=== PATIENT | male | born 1970 | race Caucasian/White ===

== ENCOUNTER 2016-12-31 11:09 | Emergency (ER) | payer OTHER ==
--- NOTE | 2016-12-31 15:30 | CPEKG ---
Heart Rate: 62 RR Interval: 968 P-R Interval: 176 QRSD Interval: 96 QT Interval: 408 QTC Interval: 415 P [place]: 14 QRS [place]ingham: 44 T Wave Buckingham: 15 EKG Severity - NORMAL ECG - EKG Impression: SINUS RHYTHM Electronically Signed By: Prasanth Hernández 01-Jan-2017 13:15:05
[2016-12-31] MEDS ORDERED: IOPAMIDOL (ISOVUE 370) 100 ML BTL IV ONE (15:41)
[2016-12-31] MEDS ORDERED: NS 1,000 ML IV ONE (15:42)
[2016-12-31 15:49] LABS: % IMMATURE GRANULYOCYTES 0.2 % (0.0-1.1); ABSOLUTE IMMATURE GRANULOCYTES 0.01 10^3/uL (0.00-0.10); ADD DIFF? NO; ADD MORPH? NO; ADD SCAN? NO; ATYPICAL LYMPHOCYTE FLAG 10 (0-99); FRAGMENT RBC FLAG 0 (0-99); HEMATOCRIT 45.8 % (40.0-51.0); LEFT SHIFT FLG 0 (0-99); LIPEMIA HEMOLYSIS FLAG 90 (0-99); MEAN CELL HEMOGLOBIN 31.4 pg (27.9-34.1); MEAN CELL HEMOGLOBIN CONCENTR. 34.9 g/dL (32.4-36.7); MEAN CELL VOLUME 89.8 fL (81.5-99.8); MEAN PLATELET VOLUME 9.7 fL (8.7-11.7); PLATELET CLUMPS FLAG 20 (0-99); PLATELET COUNT 217 10^3/uL (150-400); RED CELL DISTRIBUTION WIDTH 12.3 % (11.5-15.2)
[2016-12-31 15:57] LABS: ANION GAP 10 mEq/L (8-16); CALCIUM 9.8 mg/dL (8.5-10.4); CARBON DIOXIDE 26 mEq/l (22-31); CHLORIDE 102 mEq/L (97-110); CREATININE 1.3 mg/dL (0.7-1.3); GLOMERULAR FILTRATION RATE 60; GLUCOSE 81 mg/dL (70-100); POTASSIUM 4.4 mEq/L (3.5-5.2); SODIUM 138 mEq/L (134-144)
[2016-12-31] MEDS ORDERED: ACYCLOVIR 400 MG TAB PO ONE (16:02)
--- NOTE | 2016-12-31 16:02 | EDPHY ---
H & P Stated Complaint: back pain to abd worse at night Time Seen by Provider: 12/31/16 14:45 HPI/ROS: Chief complaint: Right-sided back and chest pain History of present illness: This is a 46-year-old male who presents to the emergency department for right-sided back and chest pain. Patient reports the onset of symptoms over the last day. He reports symptoms are worsening. He states he has developed an associated rash in this region. Symptoms are worsened with deep breathing. He denies other associated signs or symptoms including no fevers or chills, no cough, no pain or swelling in the legs. Patient suffered from a pulmonary embolism after he fractured his leg last fall. He was on Coumadin but discontinued it earlier this spring and is not currently on anticoagulant medications. He states this feels very similar to the last time he had a pulmonary embolism. Review of systems: A 10 point review of systems was obtained and other than described above was negative - Personal History Current Tetanus/Diphtheria Vaccine: Yes Current Tetanus Diphtheria and Acellular Pertussis (TDAP): Yes Tetanus Vaccine Date: within last 10 years - Medical/Surgical History Hx Asthma: No Hx Chronic Respiratory Disease: No Hx Diabetes: No Hx Cardiac Disease: No Hx Renal Disease: No Hx Cirrhosis: No Hx Alcoholism: No Hx HIV/AIDS: No Hx Splenectomy or Spleen Trauma: No Other PMH: wisdom teeth extracted, right arm fx with plate, hypothyroidsm, hyperlipidemia, orif R tibia - Social History Smoking Status: Never smoked - Physical Exam Exam: General Appearance: Alert, nontoxic. Eyes: Pupils equal and round no pallor or injection. ENT, Mouth: Mucous membranes moist. Respiratory: There are no retractions, lungs are clear to auscultation. Cardiovascular: Regular rate and rhythm. Gastrointestinal: Abdomen is soft and nontender, no masses, bowel sounds normal. Neurological: Alert and oriented x4. Strength and sensation intact and symmetrical. Skin: Patient is an erythematous rash with vesicles to the right side of his back and abdomen in a dermatomal pattern consistent with shingles. Musculoskeletal: Neck is supple nontender. Extremities are symmetrical, full range of motion. Psychiatric: Patient is oriented X 3, there is no agitation. Constitutional: Initial Vital Signs Temperature (C) 36.8 C 12/31/16 11:23 Heart Rate 74 12/31/16 11:23 Respiratory Rate 16 12/31/16 11:23 Blood Pressure 107/79 12/31/16 11:23 O2 Sat (%) 96 12/31/16 11:23 O2 Delivery Mode Room Air Allergies/Adverse Reactions: oxycodone Allergy (Verified 07/06/16 09:23) Home Medications: Medication Instructions Recorded Ezetimibe [Zetia 10 MG (*)] 10 mg PO DAILY 05/06/16 Levothyroxine [Synthroid 75 mcg 75 mcg PO DAILY06 05/06/16 (*)] QUEtiapine FUMARATE [Seroquel 25 12.5 - 25 mg PO HS PRN 05/06/16 mg (*)] Simvastatin [Zocor] 40 mg PO DAILY 05/06/16 Acetaminophen [Tylenol 325mg (*)] 650 mg PO Q6 PRN 06/17/16 Warfarin Sodium [Coumadin 5MG (*)] 7.5 mg PO DAILY AT 4PM #50 tab 06/19/16 Acyclovir 800 mg PO 5XD #35 tab 12/31/16 Medical Decision Making - Diagnostics Imaging: Discussed imaging studies w/ banquet server on call Radiologist ED Course/Re-evaluation: Patient is discussed with my secondary supervising physician Dr. Aj Ornelas. Patient presents to the emergency department with right-sided chest pain. He is nontoxic. Vital signs are stable. He has a rash consistent with shingles. However he is very concerned that he has redeveloped a pulmonary embolism as he had one previously and recently discontinued anticoagulation medication. He believes the chest pain that he is experiencing is different than the pain he has at the site of the rash. He would like to be worked up for new pulmonary embolism. Workup is obtained and negative. I do believe his symptoms are secondary to shingles. He will be started on acyclovir. He is discharged home. Home care is discussed. Return precautions are given. Patient voiced understanding and agreement with plan. Differential Diagnosis: Included but not limited to shingles, pulmonary embolism, pneumonia, pneumothorax - Data Points Laboratory Results: Laboratory Results 12/31/16 15:28 12/31/16 15:28 12/31/16 12/31/16 12/31/16 15:29 15:28 15:28 WBC 4.42 10^3/uL 10^3/uL (3.80-9.50) RBC 5.10 10^6/uL 10^6/uL (4.40-6.38) Hgb 16.0 g/dL g/dL (13.7-17.5) POC Hgb 16.3 gm/dL gm/dL (13.7-17.5) Hct 45.8 % % (40.0-51.0) POC Hct 48 % % (40-51) MCV 89.8 fL fL (81.5-99.8) MCH 31.4 pg pg (27.9-34.1) MCHC 34.9 g/dL g/dL (32.4-36.7) RDW 12.3 % % (11.5-15.2) Plt Count 217 10^3/uL 10^3/uL (150-400) MPV 9.7 fL fL (8.7-11.7) Neut % (Auto) 56.6 % % (39.3-74.2) Lymph % (Auto) 29.2 % % (15.0-45.0) Randolph % (Auto) 9.5 % % (4.5-13.0) Eos % (Auto) 3.6 % % (0.6-7.6) Baso % (Auto) 0.9 % % (0.3-1.7) Nucleat RBC Rel Count 0.0 % % (0.0-0.2) Absolute Neuts (auto) 2.50 10^3/uL 10^3/uL (1.70-6.50) Absolute Lymphs (auto) 1.29 10^3/uL 10^3/uL (1.00-3.00) Absolute Monos (auto) 0.42 10^3/uL 10^3/uL (0.30-0.80) Absolute Eos (auto) 0.16 10^3/uL 10^3/uL (0.03-0.40) Absolute Basos (auto) 0.04 10^3/uL 10^3/uL (0.02-0.10) Absolute Nucleated RBC 0.00 10^3/uL 10^3/uL (0-0.01) Immature Gran % 0.2 % % (0.0-1.1) Immature Gran # 0.01 10^3/uL 10^3/uL (0.00-0.10) POC Sodium 142 mEq/L mEq/L (134-144) Sodium 138 mEq/L mEq/L (134-144) POC Potassium 4.0 mEq/L mEq/L (3.3-5.0) Potassium 4.4 mEq/L mEq/L (3.5-5.2) POC Chloride 100 mEq/L mEq/L (97-110) Chloride 102 mEq/L mEq/L (97-110) Carbon Dioxide 26 mEq/l mEq/l (22-31) Anion Gap 10 mEq/L mEq/L (8-16) POC BUN 20 mg/dL mg/dL (7-23) BUN 19 mg/dL mg/dL (7-23) Creatinine 1.3 mg/dL mg/dL (0.7-1.3) POC Creatinine 1.4 mg/dL H mg/dL (0.7-1.3) Estimated GFR 60 Glucose 81 mg/dL mg/dL (70-100) POC Glucose 84 mg/dL mg/dL (70-100) Calcium 9.8 mg/dL mg/dL (8.5-10.4) Troponin I < 0.012 ng/mL ng/mL (0-0.034) Medications Given: Discontinued Medications Sodium Chloride (Ns) 1,000 mls @ 0 mls/hr IV ONCE ONE PRN Reason: Wide Open Stop: 12/31/16 15:43 Last Admin: 12/31/16 15:42 Dose: 1,000 mls Point of Care Test Results: 12/31/16 15:29 POC Sodium 142 POC Potassium 4.0 POC Chloride 100 POC BUN 20 POC Creatinine 1.4 H POC Glucose 84 Departure - Departure Disposition: Home, Routine, Self-Care Clinical Impression: Shingles Condition: Good Instructions: Shingles (ED) Referrals: Maggie Coulter MD [Primary Care Provider] - As per Instructions Prescriptions: Acyclovir 800 mg PO 5XD #35 tab
[2016-12-31 16:07] LABS: TROPONIN I < 0.012 ng/mL (0-0.034)
[2016-12-31 16:53] VITALS: BP 132/87; PULSE 83; RESP 18; TEMP 98.4; O2SAT 97
== END 2016-12-31 16:52 | disposition home or self-care (01) ==
DX: B02.9 Zoster without complications (principal); Z79.01 Long term (current) use of anticoagulants
CPT/HCPCS: 82947-QW; Q9967

== ENCOUNTER 2018-11-23 10:26 | Emergency (ER) | payer OTHER ==
--- NOTE | 2018-11-23 10:46 | EDPHY ---
H & P Stated Complaint: L arm pnt specific pain since yesterday, Hx PE. Denies SOB/CP. Time Seen by Provider: 11/23/18 10:34 HPI/ROS: CHIEF COMPLAINT: Left antecubital cubital fossa and right calf pain, history of factor 5 Leiden HISTORY OF PRESENT ILLNESS: 48-year-old male history of factor 5 Leiden, prior history of DVT and PE, not currently anticoagulated, complaining of atraumatic right calf and left arm pain, specifically in antecubital fossa, after a mountain bike ride yesterday. No fall or trauma. Concerned because a feels similar to prior DVT. No dyspnea. No chest pain. No discoloration to either extremity. No paresthesia to either extremity. PRIMARY CARE PROVIDER: Dr. Maggie Coulter REVIEW OF SYSTEMS: 10 systems reviewed and negative with the exception of the elements mentioned in the history of present illness PAST MEDICAL & SURGICAL HISTORY: Factor 5 Leiden history. DVT PE history. No chronic anticoagulation. SOCIAL HISTORY: Nonsmoker. No IV drug use. PHYSICAL EXAM (Prior to examination, patient consented to physical exam, hands were washed and my usual and customary physical exam procedures followed) 1) GENERAL: Well-developed, well-nourished, alert and oriented. Appears to be in no acute distress. 2) HEAD: Normocephalic, atraumatic 3) HEENT: Pupils equal, round, reactive to light bilaterally. Sclera anicteric. 4) NECK: Full range of motion, no meningeal signs. 5) LUNGS: Clear auscultation bilaterally, no wheezes, no rhonchi, no retractions. 6) HEART: Regular rate and rhythm, no murmur, no heave, no gallop. 7) ABDOMEN: No guarding, no rebound, no focal tenderness, negative McBurney's, negative Perez's, negative Rovsing's, negative peritoneal sign, 8) MUSCULOSKELETAL: Left upper extremity: Tender to palpation left antecubital fossa with no skin changes, soft compartments throughout, no crepitus, neurovascularly intact distally with normal coloration and temperature distally. Right upper extremity: No tenderness. no skin changes, soft compartments throughout, no crepitus, neurovascularly intact distally with normal coloration and temperature distally. Right lower extremity: Palpable cord right calf with associated tenderness. No skin changes. Soft compartments. No crepitus. No overlying skin changes. DP PT pulses present and brisk distally with normal color and temperature distally. Left lower extremity:no skin changes, soft compartments throughout, no crepitus , neurovascularly intact distally with normal coloration and temperature distally. DP PT pulses present and brisk 9) BACK: N no obvious trauma, no visual or palpable abnormality. 10) SKIN: No rash, no petechiae. 11) Psychiatric: Patient is oriented X 3, there is no agitation. DIFFERENTIAL DIAGNOSIS: In no particular order including but not limited to DVT, compartment syndrome, superficial venous thrombosis, cellulitis, PE - Personal History Current Tetanus/Diphtheria Vaccine: Yes Tetanus Vaccine Date: within last 10 years - Medical/Surgical History Hx Asthma: No Hx Chronic Respiratory Disease: No Hx Diabetes: No Hx Cardiac Disease: No Hx Renal Disease: No Hx Cirrhosis: No Hx Alcoholism: No Hx HIV/AIDS: No Hx Splenectomy or Spleen Trauma: No Other PMH: wisdom teeth extracted, right arm fx with plate, hypothyroidsm, hyperlipidemia, orif R tibia, multiple PEs - Social History Smoking Status: Never smoked Constitutional: Initial Vital Signs Temperature (C) 36.5 C 11/23/18 10:31 Heart Rate 63 11/23/18 10:31 Respiratory Rate 18 11/23/18 10:31 Blood Pressure 144/94 H 11/23/18 10:31 O2 Sat (%) 98 11/23/18 10:31 O2 Delivery Mode Room Air Allergies/Adverse Reactions: oxycodone Allergy (Verified 11/23/18 10:30) Home Medications: Medication Instructions Recorded Ezetimibe [Zetia 10 MG (*)] 10 mg PO DAILY 05/06/16 Levothyroxine [Synthroid 75 mcg 75 mcg PO DAILY06 05/06/16 (*)] QUEtiapine FUMARATE [Seroquel 25 12.5 - 25 mg PO HS PRN 05/06/16 mg (*)] Simvastatin [Zocor] 40 mg PO DAILY 05/06/16 Acetaminophen [Tylenol 325mg (*)] 650 mg PO Q6 PRN 06/17/16 Warfarin Sodium [Coumadin 5MG (*)] 7.5 mg PO DAILY AT 4PM #50 tab 06/19/16 Acyclovir 800 mg PO 5XD #35 tab 12/31/16 Medical Decision Making - Diagnostics Imaging Results: Imaging Impressions Extremity Venous Study 11/23/18 10:41 Impression: No deep venous thrombosis right leg. Findings and recommendations discussed with Emergency Department physician, Rachelle JC at 11:52 hour, 11/23/2018. Final report concurs with initial preliminary interpretation. Extremity Venous Study 11/23/18 10:41 Impression: 1. Positive superficial thrombophlebitis involving the left cephalic vein. 2. No deep venous thrombosis left arm. Findings and recommendations discussed with Emergency Department physician, Rachelle Sinha at 11:52 hour, 11/23/2018. Final report concurs with initial preliminary interpretation. Images reviewed myself ED Course/Re-evaluation: 10:46 a.m.: I reviewed the patient's old medical records. Recommended ultrasound of his left upper extremity and right lower extremity given his history of factor 5 Leiden and recurrent DVT. No pulmonary complaints at this time. 11:57 a.m.: Discussed with the patient his imaging results showing no evidence of DVT in either the upper lower extremity. Superficial thrombophlebitis left upper extremity noted. I re-examined the patient. He remains neurovascular intact. Recommend warm compresses. He Will be discharged. Close follow-up and red flag signs and symptoms discussed with patient. Think the patient is safe for discharge. He feels comfortable being discharged. Care of patient under supervision of secondary supervising physician Dr Penaloza with whom I discussed case. Departure - Departure Disposition: Home, Routine, Self-Care Clinical Impression: Thrombophlebitis of left arm Condition: Good Instructions: Superficial Thrombophlebitis (ED) Additional Instructions: Return to the ER immediately if you experience discoloration, have worsening pain, numbness, tingling, or any other symptoms that concern you. Try to keep your affected extremity elevated above the level of your chest, and keep cold packs on the affected area, for the next 48 hours. Referrals: Maggie Coulter MD [Primary Care Provider] - 2-3 days, call for appt.
[2018-11-23 12:16] VITALS: BP 128/89
== END 2018-11-23 12:16 | disposition home or self-care (01) ==
DX: I80.8 Phlebitis and thrombophlebitis of other sites (principal); M79.661 Pain in right lower leg; D68.2 Hereditary deficiency of other clotting factors; Z86.718 Personal history of other venous thrombosis and embolism; Z86.711 Personal history of pulmonary embolism

== ENCOUNTER 2018-11-27 16:23 | Observation (INO) | payer OTHER ==
--- NOTE | 2018-11-27 17:07 | EDPHY ---
H & P Stated Complaint: LUE superficial thrombosis, SOB Time Seen by Provider: 11/27/18 17:02 HPI/ROS: HPI: This is a 48-year-old male who presents with Chief Complaint: LUE superficial thrombosis, SOB Location: Left upper extremity Quality: Worsening swelling and palpable cord Duration: 24-48 hours Signs and Symptoms: No bleeding, no radiation, no numbness, no weakness, no tingling, no incontinence, no decreased range of motion, no swelling, no pain, no fever Timing: Rapidly worsening Severity: Moderate Context: Patient has a history of factor 5 Leiden deficiency, pulmonary embolism and DVT last and May 2016 after right tibia fracture and ORIF procedure presents for the 2nd time to the emergency room in 4 days with complaints of shortness of breath at rest over the last 24-48 hours. Patient was seen in this emergency room on 11/23/2018 after he went mountain biking over the weekend and noticed left upper extremity swelling and palpable cord. An ultrasound was performed that showed left cephalic vein superficial thrombosis. A right lower leg ultrasound was performed and was negative for DVT. Patient was advised supportive care. He reports that the area of discomfort in his left upper extremity is still present and now he has a more medial area with a palpable cord. Followed by Hematology, Dr. De La Rosa. No Longer taking anticoagulation. Patient denies any fever, cough, wheezing, chest pain. No recent long distance travel. Nonsmoker. Modifying Factors: Warm compresses without relief Comment: ROS: A comprehensive 10 system review of systems is otherwise negative aside from elements mentioned in the history of present illness. MEDICAL/SURGICAL/SOCIAL HISTORY: Medical history: hypothyroidism, hyperlipidemia, multiple PEs, factor 5 Leiden Surgical history: ORIF right tibia, wisdom teeth extraction, right arm fracture with or ORIF Social history: Employed. Nonsmoker. CONSTITUTIONAL: Polite and cooperative middle-aged white male, awake and alert , no obvious distress HEENT: Atraumatic and normocephalic, PERRL, EOMI. Wears glasses. Nares patent ; no rhinorrhea; no nasal mucosal edema. Tympanic membranes clear. Oropharynx clear, no exudate and moist pink mucosa. Airway patent. No lymphadenopathy. No meningismus. Cardiovascular: Normal S1/S2, regular rate, regular rhythm, without murmur rub or gallop. PULMONARY/CHEST: Symmetrical and nontender. Clear to auscultation bilaterally. Good air movement. No accessory muscle usage. ABDOMEN: Soft, nondistended, nontender, no rebound, no guarding, no peritoneal signs, no masses or organomegaly. No CVAT. EXTREMITIES: 2/2 radial pulses, boilers and pressure vessels inspector strength 5/5, left upper extremity shows palpable cord along the cephalic lateral portion as well as the medial vein near the antecubital fossa no skin erythema, warmth, discharge. Tenderness with palpation of the 2 palpable cords. no clubbing, no cyanosis or edema. Negative Homans sign. NEUROLOGICAL: no focal neuro deficits. GCS 15. SKIN: Warm and dry, no erythema. no rash. Good capillary refill. Source: Patient Exam Limitations: No limitations - Personal History Current Tetanus/Diphtheria Vaccine: Yes Current Tetanus Diphtheria and Acellular Pertussis (TDAP): Yes Tetanus Vaccine Date: within last 10 years - Medical/Surgical History Hx Asthma: No Hx Chronic Respiratory Disease: No Hx Diabetes: No Hx Cardiac Disease: No Hx Renal Disease: No Hx Cirrhosis: No Hx Alcoholism: No Hx HIV/AIDS: No Hx Splenectomy or Spleen Trauma: No Other PMH: wisdom teeth extracted, right arm fx with plate, hypothyroidsm, hyperlipidemia, orif R tibia, multiple PEs, factor 5 Leiden - Social History Smoking Status: Never smoked Constitutional: Initial Vital Signs Temperature (C) 37.1 C 11/27/18 16:32 Heart Rate 75 11/27/18 16:32 Respiratory Rate 16 11/27/18 16:32 Blood Pressure 120/87 H 11/27/18 16:32 O2 Sat (%) 97 11/27/18 16:32 O2 Delivery Mode Room Air Allergies/Adverse Reactions: oxycodone Allergy (Verified 11/27/18 16:32) Home Medications: Medication Instructions Recorded Levothyroxine [Synthroid 75 mcg 75 mcg PO DAILY06 05/06/16 (*)] QUEtiapine FUMARATE [Seroquel 25 12.5 - 25 mg PO HS PRN 05/06/16 mg (*)] Acetaminophen [Tylenol 325mg (*)] 650 mg PO Q6 PRN 06/17/16 Crestor 11/27/18 Medical Decision Making - Diagnostics Imaging Results: Imaging Impressions Chest/Thorax CTA 11/27/18 17:07 Impression: Very small volume left lower lobe subsegmental pulmonary artery thromboemboli. There is no evidence of pulmonary infarction or pleural effusion. Findings were discussed with Amanda Fernandez PA-C at 18:21, on 11/27/2018. ED Course/Re-evaluation: Vital signs reviewed and stable upon arrival. No hypoxia, tachypnea, respiratory distress. IV access, laboratory studies and CTA chest ordered as high risk for pulmonary embolism with superficial thrombosis diagnosed several days ago factor 5 Leiden deficiency. 1800: Laboratory studies reviewed. No signs of leukocytosis/anemia/platelet dysfunction/JOAQUÍN/electrolyte imbalance/coagulopathy. 1825: Called By Dr. Lynch who advised CTA chest shows small left lower lobe subsegmental PE in the isolated branch with no heart strain, no pulmonary infarction and no effusion. Given Lovenox 1 mg/kg ED decision to consult for admission for factor 5 Leiden deficiency, left cephalic vein superficial thrombosis that is worsening and new pulmonary embolism. Spoke with Dr. Polanco who kindly agrees to admit patient and provide further care. This patient was seen under the supervision of my secondary supervising physician. I evaluated and cared for this patient with attending. Differential Diagnosis: Shortness of breath including but not limited to pulmonary infectious process, COPD, asthma, pulmonary embolus and congestive heart failure. - Data Points Laboratory Results: Laboratory Results 11/27/18 17:17 11/27/18 17:17 11/27/18 11/27/18 11/27/18 17:17 17:17 17:17 WBC 5.87 10^3/uL 10^3/uL (3.80-9.50) RBC 5.34 10^6/uL 10^6/uL (4.40-6.38) Hgb 16.3 g/dL g/dL (13.7-17.5) Hct 48.9 % % (40.0-51.0) MCV 91.6 fL fL (81.5-99.8) MCH 30.5 pg pg (27.9-34.1) MCHC 33.3 g/dL g/dL (32.4-36.7) RDW 12.7 % % (11.5-15.2) Plt Count 228 10^3/uL 10^3/uL (150-400) MPV 9.1 fL fL (8.7-11.7) Neut % (Auto) 57.3 % % (39.3-74.2) Lymph % (Auto) 33.6 % % (15.0-45.0) [facility] % (Auto) 6.3 % % (4.5-13.0) Eos % (Auto) 1.9 % % (0.6-7.6) Baso % (Auto) 0.7 % % (0.3-1.7) Nucleat RBC Rel Count 0.0 % % (0.0-0.2) Absolute Neuts (auto) 3.37 10^3/uL 10^3/uL (1.70-6.50) Absolute Lymphs (auto) 1.97 10^3/uL 10^3/uL (1.00-3.00) Absolute Monos (auto) 0.37 10^3/uL 10^3/uL (0.30-0.80) Absolute Eos (auto) 0.11 10^3/uL 10^3/uL (0.03-0.40) Absolute Basos (auto) 0.04 10^3/uL 10^3/uL (0.02-0.10) Absolute Nucleated RBC 0.00 10^3/uL 10^3/uL (0-0.01) Immature Gran % 0.2 % % (0.0-1.1) Immature Gran # 0.01 10^3/uL 10^3/uL (0.00-0.10) PT 12.1 SEC SEC (12.0-15.0) INR 0.93 (0.83-1.16) APTT 31.0 SEC SEC (23.0-38.0) Sodium 137 mEq/L mEq/L (135-145) Potassium 4.2 mEq/L mEq/L (3.5-5.2) Chloride 100 mEq/L mEq/L (97-110) Carbon Dioxide 28 mEq/l mEq/l (22-31) Anion Gap 9 mEq/L mEq/L (6-14) BUN 18 mg/dL mg/dL (7-23) Creatinine 1.2 mg/dL mg/dL (0.7-1.3) Estimated GFR > 60 Glucose 88 mg/dL mg/dL (70-100) Calcium 9.9 mg/dL mg/dL (8.5-10.4) Departure - Departure Disposition: [facility] Clinical Impression: Left cephalic vein thrombosis, Factor V Leiden Pulmonary embolism Qualifiers: Pulmonary embolism type: other Chronicity: acute Acute cor pulmonale presence: without acute cor pulmonale Qualified Code(s): I26.99 - Other pulmonary embolism without acute cor pulmonale Condition: Fair
[2018-11-27 17:28] LABS: PLATELET COUNT 228 10^3/uL (150-400)
[2018-11-27] MEDS ORDERED: IOPAMIDOL (ISOVUE 370) 100 ML BTL IV ONE (17:33)
[2018-11-27 17:59] LABS: INR 0.93 (0.83-1.16); PROTIME(PATIENT) 12.1 SEC (12.0-15.0)
[2018-11-27] MEDS ORDERED: ENOXAPARIN 100 MG/ML SYR SC ONE ×2 (18:26→19:00)
[2018-11-27] MEDS ORDERED: ONDANSETRON 4 MG/2 ML VIAL IVP PRN (19:17)
[2018-11-27] MEDS ORDERED: ONDANSETRON DISINTEGRATING 4 MG TAB PO PRN (19:17)
[2018-11-27] MEDS ORDERED: ACETAMINOPHEN 325 MG TAB PO PRN (19:17)
[2018-11-27] MEDS ORDERED: QUEtiapine FUMARATE 25 MG TAB PO PRN (19:21)
[2018-11-27] MEDS ORDERED: OLOPATADINE EACHEYE PRN (19:21)
--- NOTE | 2018-11-27 19:28 | PDGENHP ---
<Liliam Johnston - Last Filed: 11/27/18 19:49> History and Physical - Chief Complaint SOB - History of Present Illness 48 y/o male w/hx Factor V Leiden, hypothyroidism, PE/DVT, and HLD presents w/4 days worth of SOB @ rest. He presented to the ED on 11/23 w/ c/o LUE swelling and tenderness after mountain biking over the weekend, no trauma. US performed demonstrated left cephalic vein superficial thrombosis and RLE US negative for DVT (2016 R tib fx w/ORIF repair). He was d/c'ed from ED w/supportive care instructions. He presents today w/ worsening LUE pain and tenderness and SOB at rest. Chest CTA demonstrate small volume to left lower lobe subsegmental PE. No AC for the last 2 years. Denies CP, palpitations, nausea, vomiting. No recent surgeries or long distance traveling. He is being admitted for treatment and monitoring. History Information - Allergies/Home Medication List Allergies/Adverse Reactions: oxycodone Allergy (Verified 11/27/18 16:32) Home Medications: Levothyroxine [Synthroid 75 mcg (*)] 75 mcg PO DAILY06 05/06/16 [Last Taken 04/09] QUEtiapine FUMARATE [Seroquel 25 mg (*)] 12.5 - 25 mg PO HS PRN 05/06/16 [Last Taken 11/26/18] Olopatadine HCl [Pataday] 1 % EACHEYE DAILY PRN 11/27/18 [Last Taken Unknown] Rosuvastatin Calcium [Crestor 10mg (RX)] 10 mg PO DAILY 11/27/18 [Last Taken 04/09] I have personally reviewed and updated: family history, medical history, social history, surgical history Past Medical History: Factor V Leiden - not AC - Past Medical History DVT (RLE 2016), hyperlipidemia, pulmonary embolism (2016) Additional medical history: Hyperlipidemia, hypothyroidism - Surgical History Additional surgical history: Right arm fracture repair, left thumb repair, wisdom teeth extraction, right tibial fracture repair - Family History Positive for: CAD - Social History Smoking Status: Never smoked Alcohol Use: None Drug Use: None Additional social history: 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 Lives in [facility] Review of Systems Review of Systems: ROS: 10pt was reviewed & negative except for what was stated in HPI & below Physical Exam Physical Exam: Lab data and imaging were reviewed. White blood count: 5.87 Hemoglobin hematocrit: 16.3 and 48.9 Platelet count: 2 2 8 Sodium: 137 Potassium: 4.2 Chloride: 100 Carbon dioxide: 28 BUN/Cr: 18/1.2 INR: 0.93 Chest CTA: See HPI EKG: Pending Temp Pulse Resp BP Pulse Ox 37.1 C 75 16 120/87 H 97 11/27/18 16:32 11/27/18 16:32 11/27/18 16:32 11/27/18 16:32 11/27/18 16:32 Constitutional: no apparent distress, appears nourished, not in pain Eyes: PERRL, anicteric sclera, EOMI Ears, Nose, Mouth, Throat: moist mucous membranes, hearing normal, ears appear normal, no oral mucosal ulcers Cardiovascular: regular rate and rhythym, no murmur, rub, or gallop, No edema Peripheral Pulses: 2+: dorsalis-pedis (R), dorsalis-pedis (L) Respiratory: no respiratory distress, no rales or rhonchi, clear to auscultation Gastrointestinal: normoactive bowel sounds, soft, non-tender abdomen, no palpable masses Genitourinary: no bladder fullness, no bladder tenderness Skin: warm, normal color, no rashes or abrasions, no fluctuance, no induration, other (Left upper extremity: Edematous palpable 2 cords with tenderness along the cephalic lateral portion as well as the medial vein near the AC fossa left radial pulse 2 +, sensation intact and radiology physician assistant strength intact), No mottled Musculoskeletal: full muscle strength, no muscle tenderness, normal joint ROM, no joint effusions Neurologic: AAOx3, sensation intact bilaterally, CN II-XII Intact Psychiatric: interacting appropriately, not anxious, not encephalopathic, thought process linear Lymph, Heme, Immunologic: no cervical LAD, no supraclavicular LAD Lab Data & Imaging Review 11/27/18 17:17 11/27/18 17:17 WBC 5.87 10^3/uL (3.80-9.50) 11/27/18 17:17 RBC 5.34 10^6/uL (4.40-6.38) 11/27/18 17:17 Hgb 16.3 g/dL (13.7-17.5) 11/27/18 17:17 Hct 48.9 % (40.0-51.0) 11/27/18 17:17 MCV 91.6 fL (81.5-99.8) 11/27/18 17:17 MCH 30.5 pg (27.9-34.1) 11/27/18 17:17 MCHC 33.3 g/dL (32.4-36.7) 11/27/18 17:17 RDW 12.7 % (11.5-15.2) 11/27/18 17:17 Plt Count 228 10^3/uL (150-400) 11/27/18 17:17 MPV 9.1 fL (8.7-11.7) 11/27/18 17:17 Neut % (Auto) 57.3 % (39.3-74.2) 11/27/18 17:17 Lymph % (Auto) 33.6 % (15.0-45.0) 11/27/18 17:17 Rankin % (Auto) 6.3 % (4.5-13.0) 11/27/18 17:17 Eos % (Auto) 1.9 % (0.6-7.6) 11/27/18 17:17 Baso % (Auto) 0.7 % (0.3-1.7) 11/27/18 17:17 Nucleat RBC Rel Count 0.0 % (0.0-0.2) 11/27/18 17:17 Absolute Neuts (auto) 3.37 10^3/uL (1.70-6.50) 11/27/18 17:17 Absolute Lymphs (auto) 1.97 10^3/uL (1.00-3.00) 11/27/18 17:17 Absolute Monos (auto) 0.37 10^3/uL (0.30-0.80) 11/27/18 17:17 Absolute Eos (auto) 0.11 10^3/uL (0.03-0.40) 11/27/18 17:17 Absolute Basos (auto) 0.04 10^3/uL (0.02-0.10) 11/27/18 17:17 Absolute Nucleated RBC 0.00 10^3/uL (0-0.01) 11/27/18 17:17 Immature Gran % 0.2 % (0.0-1.1) 11/27/18 17:17 Immature Gran # 0.01 10^3/uL (0.00-0.10) 11/27/18 17:17 PT 12.1 SEC (12.0-15.0) 11/27/18 17:17 INR 0.93 (0.83-1.16) 11/27/18 17:17 APTT 31.0 SEC (23.0-38.0) 11/27/18 17:17 Sodium 137 mEq/L (135-145) 11/27/18 17:17 Potassium 4.2 mEq/L (3.5-5.2) 11/27/18 17:17 Chloride 100 mEq/L (97-110) 11/27/18 17:17 Carbon Dioxide 28 mEq/l (22-31) 11/27/18 17:17 Anion Gap 9 mEq/L (6-14) 11/27/18 17:17 BUN 18 mg/dL (7-23) 11/27/18 17:17 Creatinine 1.2 mg/dL (0.7-1.3) 11/27/18 17:17 Estimated GFR > 60 11/27/18 17:17 Glucose 88 mg/dL (70-100) 11/27/18 17:17 Calcium 9.9 mg/dL (8.5-10.4) 11/27/18 17:17 Total Bilirubin 0.4 mg/dL (0.1-1.4) 11/27/18 17:17 Conjugated Bilirubin 0.3 mg/dL (0.0-0.5) 11/27/18 17:17 Unconjugated Bilirubin 0.1 mg/dL (0.0-1.1) 11/27/18 17:17 AST 28 IU/L (17-59) 11/27/18 17:17 ALT 44 IU/L (21-72) 11/27/18 17:17 Alkaline Phosphatase 66 IU/L (38-126) 11/27/18 17:17 Total Protein 7.7 g/dL (6.3-8.2) 11/27/18 17:17 Albumin 4.7 g/dL (3.5-5.0) 11/27/18 17:17 Assessment & Plan Plan: 48-year-old male with history of factor 5 Leiden, hypothyroidism, history of pulmonary embolism and DVT, and hyperlipidemia presents with shortness of breath at rest and worsening left upper extremity pain which imaging on prior ER visit show left cephalic vein superficial thrombosis. His vital signs are the following: Blood pressure 120/87, heart rate 75, respirations 16, temperature 37.1 degrees, and oxygen saturation on room air is 97%. # pulmonary embolism -No evidence of heart strain on chest CTA; EKG pending -Received Lovenox subq 85 mg; will begin PO AC Xarelto BID in AM. Will need to take for 21 days followed by 20 mg QD. 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 the possibility of needing life-long AC #Hypothyroidism: cont L4T #HLD: Cont statin. Diet: Regular VTE PPX: Xarelto, SCDs Code: Full Dispo: Admit to observation <Barbara Polanco - Last Filed: 11/27/18 22:09> History and Physical - History of Present Illness Review of Systems Review of Systems: Physical Exam Physical Exam: Temp Pulse Resp BP Pulse Ox 36.8 C 80 16 143/93 H 94 11/27/18 19:55 11/27/18 19:55 11/27/18 19:55 11/27/18 19:55 11/27/18 19:55 Lab Data & Imaging Review 11/27/18 17:17 11/27/18 17:17 WBC 5.87 10^3/uL (3.80-9.50) 11/27/18 17:17 RBC 5.34 10^6/uL (4.40-6.38) 11/27/18 17:17 Hgb 16.3 g/dL (13.7-17.5) 11/27/18 17:17 Hct 48.9 % (40.0-51.0) 11/27/18 17:17 MCV 91.6 fL (81.5-99.8) 11/27/18 17:17 MCH 30.5 pg (27.9-34.1) 11/27/18 17:17 MCHC 33.3 g/dL (32.4-36.7) 11/27/18 17:17 RDW 12.7 % (11.5-15.2) 11/27/18 17:17 Plt Count 228 10^3/uL (150-400) 11/27/18 17:17 MPV 9.1 fL (8.7-11.7) 11/27/18 17:17 Neut % (Auto) 57.3 % (39.3-74.2) 11/27/18 17:17 Lymph % (Auto) 33.6 % (15.0-45.0) 11/27/18 17:17 Rankin % (Auto) 6.3 % (4.5-13.0) 11/27/18 17:17 Eos % (Auto) 1.9 % (0.6-7.6) 11/27/18 17:17 Baso % (Auto) 0.7 % (0.3-1.7) 11/27/18 17:17 Nucleat RBC Rel Count 0.0 % (0.0-0.2) 11/27/18 17:17 Absolute Neuts (auto) 3.37 10^3/uL (1.70-6.50) 11/27/18 17:17 Absolute Lymphs (auto) 1.97 10^3/uL (1.00-3.00) 11/27/18 17:17 Absolute Monos (auto) 0.37 10^3/uL (0.30-0.80) 11/27/18 17:17 Absolute Eos (auto) 0.11 10^3/uL (0.03-0.40) 11/27/18 17:17 Absolute Basos (auto) 0.04 10^3/uL (0.02-0.10) 11/27/18 17:17 Absolute Nucleated RBC 0.00 10^3/uL (0-0.01) 11/27/18 17:17 Immature Gran % 0.2 % (0.0-1.1) 11/27/18 17:17 Immature Gran # 0.01 10^3/uL (0.00-0.10) 11/27/18 17:17 PT 12.1 SEC (12.0-15.0) 11/27/18 17:17 INR 0.93 (0.83-1.16) 11/27/18 17:17 APTT 31.0 SEC (23.0-38.0) 11/27/18 17:17 Sodium 137 mEq/L (135-145) 11/27/18 17:17 Potassium 4.2 mEq/L (3.5-5.2) 11/27/18 17:17 Chloride 100 mEq/L (97-110) 11/27/18 17:17 Carbon Dioxide 28 mEq/l (22-31) 11/27/18 17:17 Anion Gap 9 mEq/L (6-14) 11/27/18 17:17 BUN 18 mg/dL (7-23) 11/27/18 17:17 Creatinine 1.2 mg/dL (0.7-1.3) 11/27/18 17:17 Estimated GFR > 60 11/27/18 17:17 Glucose 88 mg/dL (70-100) 11/27/18 17:17 Calcium 9.9 mg/dL (8.5-10.4) 11/27/18 17:17 Total Bilirubin 0.4 mg/dL (0.1-1.4) 11/27/18 17:17 Conjugated Bilirubin 0.3 mg/dL (0.0-0.5) 11/27/18 17:17 Unconjugated Bilirubin 0.1 mg/dL (0.0-1.1) 11/27/18 17:17 AST 28 IU/L (17-59) 11/27/18 17:17 ALT 44 IU/L (21-72) 11/27/18 17:17 Alkaline Phosphatase 66 IU/L (38-126) 11/27/18 17:17 Total Protein 7.7 g/dL (6.3-8.2) 11/27/18 17:17 Albumin 4.7 g/dL (3.5-5.0) 11/27/18 17:17 Assessment & Plan Assessment: Pulmonary embolus (Acute) Left cephalic vein thrombosis (Acute) Factor V Leiden (Acute) Plan: Patient seen and evaluated independently and care plan reviewed with JOVANNI Johnston, agree with her assessment and plan as outlined above. Please see separate documentation for further details.
--- NOTE | 2018-11-27 22:21 | HOSPPROG ---
Hospitalist Progress Note Assessment/Plan: 48 yo M with PMH of factor V Leiden and prior DVT/PE no longer on AC presenting with sob and recently diagnosed LUE superficial clot found to have PE # PE: small volume LLL PE noted on personal review of CTA, patient with sob but not hypoxic and no significant pain. With recently diagnosed LUE superficial clot but no DVT, had some sxs of his RLE recently which was negative for DVT so unclear source at this time. He has underlying factor V Leiden and previous large volume PE/DVT but taken off of AC since then as his last VTE episode was in post operative period. At this point, no clear trigger for this event, patient likely candidate for lifelong AC. Given lovenox in ER and will transition to xarelto in am. He is followed by Dr. De La Rosa already and will see him after dc # superficial LUE thrombosis: diagnosed on 11/23 and at that time no DVT noted, query if that has developed since then. Relatively low incidence of PE associated with UE DVT but no concerning sxs for DVT. 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 Old records reviewed and summarized as above. Care plan reviewed with ER doctor and JOVANNI Johnston, please see her separate documentation for further details. Objective: Vital Signs Temp Pulse Resp BP Pulse Ox 36.8 C 80 16 143/93 H 94 11/27/18 19:55 11/27/18 19:55 11/27/18 19:55 11/27/18 19:55 11/27/18 19:55 PT 12.1 SEC (12.0-15.0) 11/27/18 17:17 INR 0.93 (0.83-1.16) 11/27/18 17:17 ICD10 Worksheet Patient Problems: Problems Problem Status Onset Displaced fracture of proximal end of fibula Acute Displaced transverse fracture of shaft of tibia Acute Pulmonary embolus Acute Left cephalic vein thrombosis Acute Factor V Leiden Acute
[2018-11-28] MEDS ORDERED: LEVOTHYROXINE 75 MCG TAB PO SCH ×2 (06:00→06:30)
[2018-11-28 07:54] VITALS: BP 114/72
[2018-11-28] MEDS ORDERED: RIVAROXABAN 15 MG TAB PO SCH (08:00)
[2018-11-28] MEDS ORDERED: ROSUVASTATIN CALCIUM 10 MG TAB PO SCH (09:00)
--- NOTE | 2018-11-28 14:42 | PDDCSUM ---
Discharge Summary Discharge Summary: Date of Admission: 11/27/2018 Date of Discharge: 11/28/2018 Consults: N/A Procedures: CTA Chest Followup: PCP, Hematology Hospital Course Problem List: 48 yo M with PMH of factor V Leiden and prior DVT/PE no longer on AC presenting with sob and recently diagnosed LUE superficial clot found to have PE # PE: small volume LLL PE noted, patient with sob but not hypoxic and no significant pain. - With recently diagnosed LUE superficial clot but no DVT, had some sxs of his RLE recently which was negative for DVT so unclear source at this time. - He has underlying factor V Leiden and previous large volume PE/DVT but taken off of AC since then as his last VTE episode was in post operative period. - At this point, no clear trigger for this event, patient likely candidate for lifelong AC. - Given lovenox in ER and transitioned to Xarelto 15 mg BID for 21 days then 20 mg qd indefinitely. - He is followed by Dr. De La Rosa already and will f/u with him for further evaluation and management # Superficial LUE thrombosis: diagnosed on 11/23 and at that time no DVT noted, query if that has developed since then. - Relatively low incidence of PE associated with UE DVT but no concerning sxs for DVT. - Will hold off on further US evaluation as will not pattern changer # factor V Leiden: as above, hx of prior dvt/pe # HLD: continue statin # hypothyroid: continue lt4
== END 2018-11-28 11:41 | disposition home or self-care (01) ==
LOC: INTOOBSV 18:31 → F3E 19:35
PROVIDERS: ADMIT Internal Medicine; ATTEND Internal Medicine
DX: I26.99 Other pulmonary embolism without acute cor pulmonale (principal); D68.2 Hereditary deficiency of other clotting factors; I82.612 Acute embolism and thrombosis of superficial veins of left upper extremity; E78.5 Hyperlipidemia, unspecified; E03.9 Hypothyroidism, unspecified
CPT/HCPCS: 71275; G0378; J1650; Q9967